=== PATIENT | female | born 1935 | race Native Hawaiian/Other Pacific Islander ===

== ENCOUNTER 2016-12-19 11:09 | Emergency (ER) | payer BC, MEDICARE ==
[2016-12-19 11:13] VITALS: BP 147/73; PULSE 70; TEMP 98.1; O2SAT 99
[2016-12-19 11:14] VITALS: BMI 19.9
[2016-12-19 11:30] VITALS: RESP 18
--- NOTE | 2016-12-19 11:48 | ED PDOC ---
HPI: Back Time Seen by Provider: 12/19/16 11:46 Chief Complaint (Nursing): Back Pain Chief Complaint (Provider): right sided flank pain History Per: Patient, Family (81 y/o female with right sided flank pain noted after lifting object 4-5 days ago. States she "heard a snap" at that time. Has had worsening pain recently/placing icy hot without relief. Patient's daughter is nurse and notes bruising along right side, concerned for zoster.) Past Medical History Reviewed: Historical Data, Nursing Documentation, Vital Signs Vital Signs: Last Vital Signs Temp 98.1 F 12/19/16 11:27 Pulse 70 12/19/16 11:27 Resp 18 12/19/16 11:27 BP 147/73 12/19/16 11:27 Pulse Ox 99 12/19/16 11:27 - Surgical History Surgical History: No Surg Hx - Family History Family History: States: No Known Family Hx - Home Medications Home Medications: Ambulatory Orders Medication Instructions Recorded Atorvastatin Calcium [Lipitor] 20 mg PO DAILY 03/10/14 Olmesartan Medoxomil [Benicar] 20 mg PO DAILY 03/10/14 Non-Formulary 1 ea INH DAILY #1 ea 12/19/16 oxyCODONE/Acetaminophen [Percocet 1 ea PO Q6 PRN #5 tab 12/19/16 5/325 mg Tab] - Allergies Allergies/Adverse Reactions: Allergies Allergy/AdvReac Type Severity Reaction Status Date / Time aspirin Allergy Intermediate SWELLING Uncoded 12/19/16 11:24 beef AdvReac Mild REDNESS Uncoded 12/19/16 11:24 coke cola AdvReac REDNESS Uncoded 12/19/16 11:24 Review of Systems ROS Statement: Except As Marked, All Systems Reviewed And Found Negative Cardiovascular: Positive for: Chest Pain Physical Exam - Reviewed Nursing Documentation Reviewed: Yes Vital Signs Reviewed: Yes - Physical Exam Appears: Positive for: Well, Non-toxic, No Acute Distress Head Exam: Positive for: ATRAUMATIC, NORMAL INSPECTION, NORMOCEPHALIC Skin: Positive for: Normal Color, Warm, DRY Eye Exam: Positive for: EOMI, Normal appearance, PERRL ENT: Positive for: Normal ENT Inspection Neck: Positive for: Normal, Painless ROM Cardiovascular/Chest: Positive for: Regular Rate, Rhythm. Negative for: Chest Non Tender (chest wall tender right latera along rib diogenes. (+) small region of bruising noted with yellowish hue. one small region of ecchymosis noted. No obvious vesicle noted.) Respiratory: Positive for: CNT, Normal Breath Sounds Gastrointestinal/Abdominal: Positive for: Normal Exam, Bowel Sounds, Soft Back: Positive for: Normal Inspection Extremity: Positive for: Normal ROM Neurologic/Psych: Positive for: Alert, Oriented - ECG O2 Sat by Pulse Oximetry: 99 - Progress ED Course And Treament: CXR: NO ACUTE RIB INJURY NOTED ON XRY; NO PNEUMOTHORAX SEEN BY DR. ROQUE. PROBABLE RIB INJURY/ UNLIKELY THAT IT IS SHINGLES Disposition - Clinical Impression Clinical Impression: Rib injury - Patient ED Disposition Is Patient to be Admitted: No - Disposition Disposition: Routine/Home Disposition Time: 12:23 Condition: FAIR Prescriptions: Non-Formulary 1 ea INH DAILY #1 ea oxyCODONE/Acetaminophen [Percocet 5/325 mg Tab] 1 ea PO Q6 PRN #5 tab PRN Reason: Pain, Severe (8-10) Instructions: Rib Fracture (ED)
--- NOTE | 2016-12-19 13:50 | RAD ---
PROCEDURE: Radiographs of the Chest and Right Ribs. HISTORY: evaluate for rib injury COMPARISON: None available. TECHNIQUE: Frontal radiograph of the chest and multiple oblique radiographs of the right ribs were obtained. FINDINGS: RIGHT RIBS: No fracture or focal lesion visualized. LUNGS: Clear. PLEURA: No pneumothorax or pleural fluid. CARDIOVASCULAR: Normal sized heart. No pulmonary vascular congestion. OTHER FINDINGS: Mild thoracic dextroscoliosis. IMPRESSION: No evidence of acute right rib fracture.
== END 2016-12-19 12:50 | disposition home or self-care (01) ==
LOC: H.ER 11:09
DX: S29.9XXA Unspecified injury of thorax, initial encounter (principal); X50.9XXA Other and unspecified overexertion or strenuous movements or postures, initial encounter; Y92.89 Other specified places as the place of occurrence of the external cause

== ENCOUNTER 2017-08-21 16:30 | Observation (INO) | payer BC, MEDICARE ==
[2017-08-21 16:30] VITALS: BMI 19.9
[2017-08-21] MEDS ORDERED: Iohexol 240 (50 ml) PO ONE (17:41)
[2017-08-21 17:43] LABS: BASO # 0.1 K/uL (0.0-0.2); BASO % 1.9 % (0.0-2.0); EOS # 0.1 K/uL (0.0-0.7); EOS % 1.1 % (0.0-4.0); HEMOGLOBIN 13.1 g/dL (12.0-16.0); LYMPH % 34.9 % (20.0-40.0); MEAN CELL VOLUME 88.4 fl (81.0-99.0); MEAN CORPUSCULAR HEMOGLOBIN 28.8 pg (27.0-31.0); MEAN CORPUSCULAR HGB CONC 32.6 g/dL (33.0-37.0); MEAN PLATELET VOLUME 7.6 fl (7.2-11.7); MONO # 0.6 K/uL (0.0-0.8); MONO % 10.3 % (0.0-10.0); NEUT # 2.9 K/uL (1.8-7.0); NEUT % 51.8 % (50.0-75.0); RBC 4.55 Mil/uL (3.80-5.20); RED CELL DISTRIBUTION WIDTH 12.9 % (11.5-14.5); WHITE BLOOD COUNT 5.6 K/uL (4.8-10.8)
[2017-08-21 18:00] LABS: CALCIUM 10.3 mg/dL (8.4-10.2); GFR AFRICAN-AMERICAN > 60; GFR NON-AFRICAN AMERICAN > 60; LIPASE 165 U/L (23-300)
--- NOTE | 2017-08-21 18:02 | ED PDOC ---
HPI: Abdomen Time Seen by Provider: 08/21/17 17:15 Chief Complaint (Nursing): Abdominal Pain Chief Complaint (Provider): abdominal pain History Per: Patient, Family (family member [facility] RN) History/Exam Limitations: no limitations Onset/Duration Of Symptoms: Days (14+) Outside of [place] travel?: No Current Symptoms Are (Timing): Intermittent Episodes Severity: Moderate Location Of Pain/Discomfort: RLQ Quality Of Discomfort: Sharp Associated Symptoms: denies: Fever, Chills, Nausea, Vomiting, Diarrhea, Loss Of Appetite, Constipation, Urinary Symptoms Exacerbating Factors: None Alleviating Factors: None Last Bowel Movement: Today Additional Complaint(s): 82yo female presents c/o ongoing RLQ pain for almost 2 weeks. Pain has been intermittent and sharp, today worse ("excruciating"). She denies fever, vomiting , diarrhea, loss of appetite or urinary symptoms. Denies syncope, weakness or back pain. Abnormal Vaginal Bleeding: No Past Medical History Reviewed: Historical Data, Nursing Documentation, Vital Signs Vital Signs: Last Vital Signs Temp 98.6 F 08/21/17 16:45 Pulse 87 08/21/17 16:45 Resp 16 08/21/17 16:45 BP 161/80 H 08/21/17 16:45 Pulse Ox 97 08/21/17 19:23 - Medical History PMH: Asthma, HTN, Hypercholesterolemia - Surgical History Other surgeries: hysterectomy - Family History Family History: States: Unknown Family Hx - Living Arrangements Living Arrangements: With Family - Social History Current smoker - smoking cessation education provided: No - Home Medications Home Medications: Ambulatory Orders Medication Instructions Recorded Atorvastatin Calcium [Lipitor] 20 mg PO DAILY 03/10/14 Olmesartan Medoxomil [Benicar] 20 mg PO DAILY 03/10/14 - Allergies Allergies/Adverse Reactions: Allergies Allergy/AdvReac Type Severity Reaction Status Date / Time aspirin Allergy Intermediate SWELLING Uncoded 08/21/17 16:49 beef AdvReac Mild REDNESS Uncoded 08/21/17 16:49 coke cola AdvReac REDNESS Uncoded 08/21/17 16:49 Review of Systems ROS Statement: Except As Marked, All Systems Reviewed And Found Negative Constitutional: Negative for: Fever, Chills Cardiovascular: Negative for: Chest Pain, Palpitations Gastrointestinal: Positive for: Abdominal Pain. Negative for: Nausea, Vomiting , Diarrhea, Melena, Hematochezia, Hematemesis Genitourinary Female: Negative for: Dysuria Musculoskeletal: Negative for: Neck Pain, Arm Pain, Hand Pain Skin: Negative for: Rash, Lesions, Jaundice Neurological: Negative for: Weakness, Numbness Psych: Negative for: Anxiety Physical Exam - Reviewed Nursing Documentation Reviewed: Yes Vital Signs Reviewed: Yes - Physical Exam Appears: Positive for: Well, Non-toxic, No Acute Distress Head Exam: Positive for: ATRAUMATIC, NORMAL INSPECTION, NORMOCEPHALIC Skin: Positive for: Normal Color, Warm, DRY Eye Exam: Positive for: EOMI, Normal appearance, PERRL ENT: Positive for: Normal ENT Inspection Neck: Positive for: Normal, Painless ROM Cardiovascular/Chest: Positive for: Regular Rate, Rhythm Respiratory: Positive for: CNT, Normal Breath Sounds Gastrointestinal/Abdominal: Positive for: Bowel Sounds, Soft, Tenderness (RLQ). Negative for: Guarding, Rebound, Asicites Back: Positive for: Normal Inspection Extremity: Positive for: Normal ROM Neurologic/Psych: Positive for: Alert, Oriented - Laboratory Results Result Diagrams: 08/21/17 17:30 08/21/17 17:30 - ECG O2 Sat by Pulse Oximetry: 97 Medical Decision Making Medical Decision Making: workup for abd pain initiated w bloodwork and CT abd pelv. Patient declined pain medicine. Disposition - Clinical Impression Clinical Impression: Abdominal pain - Patient ED Disposition Is Patient to be Admitted: Transfer of Care - Disposition Disposition: Transfer of Care Disposition Time: 19:23 Condition: STABLE Forms: [employer] (Serbian) Patient Signed Over To: Palomo Peters Handoff Comments: pending CT abd pelv and re-eval /dispo
[2017-08-21 18:11] LABS: ALB/GLOB RATIO 1.2 (1.0-2.1); ALBUMIN 4.6 g/dL (3.5-5.0); ALT/SGPT 28 U/L (9-52); AST/SGOT 44 U/L (14-36); BLOOD UREA NITROGEN 13 mg/dl (7-17)
[2017-08-21 19:18] LABS: URINE BILIRUBIN NEGATIVE (NEGATIVE); URINE BLOOD SMALL (NEGATIVE); URINE CLARITY CLEAR (Clear); URINE COLOR COLORLESS (YELLOW); URINE GLUCOSE (UA) NEG (Normal); URINE LEUKOCYTE ESTERASE NEG Leu/uL (Negative); URINE NITRATE NEGATIVE (NEGATIVE); URINE PROTEIN NEGATIVE (NEGATIVE); URINE UROBILINOGEN 0.2-1.0 mg/dL (0.2-1.0)
[2017-08-21] MEDS ORDERED: Iohexol 300 100 ML IJ ONE (19:56)
[2017-08-21] MEDS ORDERED: Sodium Chloride 0.9% 50 ML IV ONE (19:56)
--- NOTE | 2017-08-21 20:12 | ED PDOC ---
"- Laboratory Results Result Diagrams: 08/21/17 17:30 08/21/17 17:30 - ECG O2 Sat by Pulse Oximetry: 97 Medical Decision Making Medical Decision Making: Time: 1899 --Patient was endorsed to provider by Dr. Paul Velazco III. Pending CT results and re-evaluation. Addendum created by Preet Ordoñez MD on 08/21/2017 9:06 PM Eastern Time ([place] & [place]) THIS REPORT CONTAINS FINDINGS THAT MAY BE CRITICAL TO PATIENT CARE. The findings were verbally communicated via telephone conference with Dr. Garcia at 9:06 PM EST on 08/21/2017. The findings were acknowledged and understood. Initial Report created on 08/21/2017 8:51 PM Eastern Time ([place] & [place]) EXAM: CT Abdomen and Pelvis With Intravenous Contrast CLINICAL HISTORY: 82 years old, female; Pain; Abdominal pain; Flank; Right lower quadrant (rlq); Prior surgery; Surgery date: 6+ months; Surgery type: Hysterectomy; Additional info: Rlq pain x2 weeks TECHNIQUE: Axial computed tomography images of the abdomen and pelvis with intravenous contrast. All CT scans at this facility use one or more dose reduction techniques, viz.: automated exposure control; ma/kV adjustment per patient size (including targeted exams where dose is matched to indication; i.e. head); or iterative reconstruction technique. Coronal and sagittal reformatted images were created and reviewed. CONTRAST: 85 mL of Omnipaque administered intravenously. COMPARISON: CT ABD AND PELVIS 2012-04-06 11:45 FINDINGS: Lower thorax: Mild atelectasis/scarring. RIGHT middle lobe nodule, stable. Probable small hiatal hernia. ABDOMEN: Liver: Small exophytic lesion along inferior right lobe, stable. Gallbladder and bile ducts: Tiny calcified gallstone. Pancreas: No ductal dilation. No mass. Spleen: No splenomegaly. Adrenals: No mass. BRYAN LORD | Final Radiology Report CONFIDENTIALITY STATEMENT This report is intended only for use by the referring physician, and only in accordance with law. If you received this in error, call [phone]. Page 2 of 2 Kidneys and ureters: Probable LEFT renal cyst. Few too small to characterize lesions within kidneys. No hydronephrosis. Stomach and bowel: Mild mural thickening vs underdistention distal gastric antrum. Scattered diverticula within colon. No associated inflammatory stranding. No definite bowel wall thickening. No obstruction. Appendix: Borderline enlarged appendix, 6-7 mm in diameter. No associated inflammatory stranding. Contrast within proximal appendix. PELVIS: Bladder: Unremarkable. Reproductive: Hysterectomy. ABDOMEN and PELVIS: Intraperitoneal space: No significant fluid collection. No free air. Bones/joints: [id number] biconcave deformities of vertebral bodies, chronic. Degenerative changes of spine. Soft tissues: Unremarkable. Vasculature: Mild atherosclerotic disease. No aneurysm. Lymph nodes: No pathologically enlarged lymph nodes. IMPRESSION: 1. Diverticulosis without definite CT evidence of diverticulitis. 2. Borderline enlarged appendix. No inflammation. Clinical correlation is needed. 3. Incidental/non-acute findings are described above. Thank you for allowing us to participate in the care of your patient. Dictated and Authenticated by: Preet Ordoñez MD 08/21/2017 8:51 PM Eastern Time ([place] & [place]) [address] Almendarez who agrees to admission for appendectomy. Case discussed with Dr. Goodman. Patient to be cleared by Dr. Mann of cardiology pending EKG. Echo pending. Scribe Attestation: Documented by Radha Ennis, acting as a scribe for Palomo Peters MD. Provider Scribe Attestation: All medical record entries made by the Scribe were at my direction and personally dictated by me. I have reviewed the chart and agree that the record accurately reflects my personal performance of the history, physical exam, medical decision making, and the department course for this patient. I have also personally directed, reviewed, and agree with the discharge instructions and disposition. Disposition - Clinical Impression Clinical Impression: Appendicitis - POA Present On Arrival: None - Disposition Disposition: Admitted as In-Patient Disposition Time: 21:00 Condition: FAIR"
--- NOTE | 2017-08-21 20:51 | CT ---
EXAM: CT Abdomen and Pelvis With Intravenous Contrast CLINICAL HISTORY: 82 years old, female; Pain; Abdominal pain; Flank; Right lower quadrant (rlq); Prior surgery; Surgery date: 6+ months; Surgery type: Hysterectomy; Additional info: Rlq pain x2 weeks TECHNIQUE: Axial computed tomography images of the abdomen and pelvis with intravenous contrast. All CT scans at this facility use one or more dose reduction techniques, viz.: automated exposure control; ma/kV adjustment per patient size (including targeted exams where dose is matched to indication; i.e. head); or iterative reconstruction technique. Coronal and sagittal reformatted images were created and reviewed. CONTRAST: 85 mL of Omnipaque administered intravenously. COMPARISON: CT ABD AND PELVIS 2012-04-06 11:45 FINDINGS: Lower thorax: Mild atelectasis/scarring. RIGHT middle lobe nodule, stable. Probable small hiatal hernia. ABDOMEN: Liver: Small exophytic lesion along inferior right lobe, stable. Gallbladder and bile ducts: Tiny calcified gallstone. Pancreas: No ductal dilation. No mass. Spleen: No splenomegaly. Adrenals: No mass. Kidneys and ureters: Probable LEFT renal cyst. Few too small to characterize lesions within kidneys. No hydronephrosis. Stomach and bowel: Mild mural thickening vs underdistention distal gastric antrum. Scattered diverticula within colon. No associated inflammatory stranding. No definite bowel wall thickening. No obstruction. Appendix: Borderline enlarged appendix, 6-7 mm in diameter. No associated inflammatory stranding. Contrast within proximal appendix. PELVIS: Bladder: Unremarkable. Reproductive: Hysterectomy. ABDOMEN and PELVIS: Intraperitoneal space: No significant fluid collection. No free air. Bones/joints: [id number] biconcave deformities of vertebral bodies, chronic. Degenerative changes of spine. Soft tissues: Unremarkable. Vasculature: Mild atherosclerotic disease. No aneurysm. Lymph nodes: No pathologically enlarged lymph nodes. IMPRESSION: 1. Diverticulosis without definite CT evidence of diverticulitis. 2. Borderline enlarged appendix. No inflammation. Clinical correlation is needed. 3. Incidental/non-acute findings are described above.
[2017-08-21] MEDS ORDERED: Sodium Chloride 0.9% 1,000 ML IV STA (21:48)
[2017-08-21] MEDS ORDERED: Piperacillin/Tazobact 3.375 GM in Sodium Chloride 0.9% 100 ML IVPB STA (21:48)
[2017-08-21 22:25] LABS: PARTIAL THROMBOPLASTIN TIME 35.6 Seconds (25.6-37.1)
--- NOTE | 2017-08-22 00:46 | CP.PCM.CON ---
History of Present Illness - History of Present Illness History of Present Illness: General Surgery Dr. Almendarez 82 y/o F w/ PMHx of HTN and HLD presents to the ED c/o abd pain. Pt states pain has been intermittent x5day. Pain has not worsened in intensity, however has localized to the RLQ. Pt has never before had this pain. Nothing made the pain better but stephanie, lemon tea made the pain worse. Pt admits to constipation. Pt denies F/C, N/V, diarrhea. PMHx: see above Meds: reviewed in chart ALL: ASA - claire-orbital swelling PSHx: MARIA DOLORES SHx: denies tobacco, EtOH, drug use FHx: noncontributory Review of Systems - Review of Systems All systems: reviewed and no additional remarkable complaints except (see HPI) Past Patient History - Infectious Disease Hx of Infectious Diseases: None - Past Medical History & Family History Past Medical History?: Yes - Past Social History Smoking Status: Never Smoked - CARDIAC Hx Cardiac Disorders: Yes Hx Hypercholesterolemia: Yes Hx Hypertension: Yes - PULMONARY Hx Respiratory Disorders: Yes Hx Asthma: Yes Hx Pneumonia: Yes - NEUROLOGICAL Hx Neurological Disorder: No - HEENT Hx HEENT Problems: No - RENAL Hx Chronic Kidney Disease: No - ENDOCRINE/METABOLIC Hx Endocrine Disorders: No - HEMATOLOGICAL/ONCOLOGICAL Hx Blood Disorders: No - INTEGUMENTARY Hx Dermatological Problems: No - MUSCULOSKELETAL/RHEUMATOLOGICAL Hx Musculoskeletal Disorders: No Hx Falls: No - GASTROINTESTINAL Hx Gastrointestinal Disorders: No - GENITOURINARY/GYNECOLOGICAL Hx Genitourinary Disorders: No - PSYCHIATRIC Hx Psychophysiologic Disorder: No Hx Substance Use: No - SURGICAL HISTORY Hx Surgeries: Yes Hx Hysterectomy: Yes - ANESTHESIA Hx Anesthesia: Yes Hx Anesthesia Reactions: No Hx Malignant Hyperthermia: No Has any member of the family had a problem w/ anesthesia?: No Meds Allergies/Adverse Reactions: Allergies Allergy/AdvReac Type Severity Reaction Status Date / Time aspirin Allergy Intermediate SWELLING Uncoded 08/21/17 16:49 beef AdvReac Mild REDNESS Uncoded 08/21/17 16:49 coke cola AdvReac REDNESS Uncoded 08/21/17 16:49 - Medications Medications: Current Medications Atorvastatin Calcium (Lipitor) 20 mg PO DAILY LANDON Sodium Chloride (Sodium Chloride 0.9%) 1,000 mls @ 125 mls/hr IV .Q8H STA Stop: 08/22/17 05:47 Last Admin: 08/21/17 21:58 Dose: 125 mls/hr Piperacillin Sod/Tazobactam (Sod 3.375 gm/ Sodium Chloride) 100 mls @ 100 mls/ hr IVPB Q6 LANDON PRN Reason: Protocol Losartan Potassium (Cozaar) 50 mg PO DAILY LANDON Morphine Sulfate (Morphine) 1 mg IVP Q4 PRN PRN Reason: Pain, severe (8-10) Physical Exam - Constitutional Appears: Non-toxic, No Acute Distress - Head Exam Head Exam: NORMAL INSPECTION - Eye Exam Eye Exam: Normal appearance - ENT Exam ENT Exam: Mucous Membranes Moist - Respiratory Exam Respiratory Exam: NORMAL BREATHING PATTERN. absent: Accessory Muscle Use, Respiratory Distress - GI/Abdominal Exam GI & Abdominal Exam: Soft, Tenderness (TTP RLQ). absent: Distended, Firm, Guarding, Rebound, Rigid - Expanded GI/Abdominal Exam Expanded Expanded GI & Abdominal Exam: absent: Heel Tap Sign, Obturator Sign, Psoas Sign , Rovsing's Sign, McBurney's Point Tenderness - Extremities Exam Extremities exam: Positive for: normal inspection - Neurological Exam Neurological exam: Alert, Oriented x3 - Psychiatric Exam Psychiatric exam: Normal Affect, Normal Mood - Skin Skin Exam: Dry, Intact, Normal Color, Warm Results - Vital Signs Recent Vital Signs: Last Vital Signs Temp 98.1 F 08/22/17 00:25 Pulse 91 H 08/22/17 00:25 Resp 18 08/22/17 00:25 BP 134/66 08/22/17 00:25 Pulse Ox 96 08/22/17 00:25 - Labs Result Diagrams: 08/21/17 17:30 08/21/17 17:30 Labs: Laboratory Results - last 24 hr 08/21/17 08/21/17 08/21/17 17:30 17:30 19:00 WBC 5.6 RBC 4.55 Hgb 13.1 Hct 40.2 MCV 88.4 MCH 28.8 MCHC 32.6 L RDW 12.9 Plt Count 223 MPV 7.6 Neut % (Auto) 51.8 Lymph % (Auto) 34.9 [place] % (Auto) 10.3 H Eos % (Auto) 1.1 Baso % (Auto) 1.9 Neut # (Auto) 2.9 Lymph # (Auto) 2.0 [place] # (Auto) 0.6 Eos # (Auto) 0.1 Baso # (Auto) 0.1 PT INR APTT Sodium 143 Potassium 4.3 Chloride 103 Carbon Dioxide 28 Anion Gap 16 BUN 13 Creatinine 0.7 Est GFR ( Amer) > 60 Est GFR (Non-Af Amer) > 60 Random Glucose 91 Calcium 10.3 H Total Bilirubin 0.9 AST 44 H ALT 28 Alkaline Phosphatase 85 Total Protein 8.4 H Albumin 4.6 Globulin 3.8 Albumin/Globulin Ratio 1.2 Lipase 165 Urine Color Colorless Urine Clarity Clear Urine pH 6.0 Ur Specific Occidental 1.005 Urine Protein Negative Urine Glucose (UA) Neg Urine Ketones Negative Urine Blood Small Urine Nitrate Negative Urine Bilirubin Negative Urine Urobilinogen 0.2-1.0 Ur Leukocyte Esterase Neg Urine RBC (Auto) 3 Urine Microscopic WBC < 1 Blood Type Antibody Screen BBK History Checked 08/21/17 08/21/17 21:57 22:00 WBC RBC Hgb Hct MCV MCH MCHC RDW Plt Count MPV Neut % (Auto) Lymph % (Auto) [place] % (Auto) Eos % (Auto) Baso % (Auto) Neut # (Auto) Lymph # (Auto) [place] # (Auto) Eos # (Auto) Baso # (Auto) PT 11.0 INR 1.0 APTT 35.6 Sodium Potassium Chloride Carbon Dioxide Anion Gap BUN Creatinine Est GFR ( Amer) Est GFR (Non-Af Amer) Random Glucose Calcium Total Bilirubin AST ALT Alkaline Phosphatase Total Protein Albumin Globulin Albumin/Globulin Ratio Lipase Urine Color Urine Clarity Urine pH Ur Specific [place] Urine Protein Urine Glucose (UA) Urine Ketones Urine Blood Urine Nitrate Urine Bilirubin Urine Urobilinogen Ur Leukocyte Esterase Urine RBC (Auto) Urine Microscopic WBC Blood Type A POSITIVE Antibody Screen Negative BBK History Checked Patient has bt - Imaging and Cardiology CT scan - abdomen Status: Image reviewed by me, Report reviewed by me Assessment & Plan - Assessment and Plan (Free Text) Assessment: 82 y/o F w/ RLQ abd pain, possibly 2/2 appendicitis - NPO@[place] - IVF, IV Abx - pain management - serial abd exams - add-on tomorrow for possible lap appy Pt discussed w/ Dr. Erickson Foley
[2017-08-22] MEDS: Piperacillin/Tazobact 3.375 GM in Sodium Chloride 0.9% 100 ML IVPB SCH ×2 (05:03→09:55)
--- NOTE | 2017-08-22 08:01 | CP.PCM.PN ---
Subjective - Date & Time of Evaluation Date of Evaluation: 08/22/17 Time of Evaluation: 08:01 - Subjective Subjective: General Surgery: Dr Almendarez Pt S&E. Reports complete resolution of symptoms. Denies any pain at this time. Denies fevers, chills, nausea, vomiting. Requesting to eat and go home. Objective - Vital Signs/Intake and Output Vital Signs (last 24 hours): Temp Pulse Resp BP Pulse Ox 98.1 F 91 H 18 134/66 97 08/22/17 00:25 08/22/17 00:25 08/22/17 00:25 08/22/17 00:25 08/22/17 04:30 - Medications Medications: Current Medications Atorvastatin Calcium (Lipitor) 20 mg PO DAILY LANDON Piperacillin Sod/Tazobactam (Sod 3.375 gm/ Sodium Chloride) 100 mls @ 100 mls/ hr IVPB Q6 LANDON PRN Reason: Protocol Last Admin: 08/22/17 05:03 Dose: 100 mls/hr Losartan Potassium (Cozaar) 50 mg PO DAILY L[facility]ON Morphine Sulfate (Morphine) 1 mg IVP Q4 PRN PRN Reason: Pain, severe (8-10) - Labs Labs: 08/21/17 17:30 08/21/17 17:30 PT 11.0 Seconds (9.8-13.1) 08/21/17 21:57 INR 1.0 (0.9-1.2) 08/21/17 21:57 APTT 35.6 Seconds (25.6-37.1) 08/21/17 21:57 - Constitutional Appears: Non-toxic, No Acute Distress - ENT Exam ENT Exam: Mucous Membranes Moist - Respiratory Exam Respiratory Exam: absent: Accessory Muscle Use, Respiratory Distress - Cardiovascular Exam Cardiovascular Exam: REGULAR RHYTHM. absent: Tachycardia - GI/Abdominal Exam GI & Abdominal Exam: Soft. absent: Distended, Firm, Guarding, Rigid, Tenderness - Extremities Exam Extremities Exam: absent: Pedal Edema - Neurological Exam Neurological Exam: Alert, Awake, Oriented x3 - Psychiatric Exam Psychiatric exam: Normal Affect, Normal Mood - Skin Skin Exam: Normal Color, Warm Assessment and Plan - Assessment and Plan (Free Text) Assessment: 82F with undifferentiated abdominal pain Plan: clinically pt has improved no evidence of appendicitis on exam or CT will trial CLD, adv as tolerated clear for d/c if elia regular diet d/w Dr arielle mcnamara, PGY3
[2017-08-22 08:33] VITALS: RESP 20
--- NOTE | 2017-08-22 10:27 | RAD ---
HISTORY: abd pain COMPARISON: Chest radiograph dated 12/19/2016. TECHNIQUE: Chest PA and lateral FINDINGS: LUNGS: Stable chronic prominence of the bilateral interstitial markings. Left basilar atelectasis/ scarring. No focal consolidation. PLEURA: No significant pleural effusion identified. No pneumothorax apparent. CARDIOVASCULAR: Atherosclerotic aortic calcifications. Cardiomediastinal silhouette within normal limits. OSSEOUS STRUCTURES: Unchanged. VISUALIZED UPPER ABDOMEN: Retained oral contrast from recent CT scan seen in the colon. OTHER FINDINGS: None. IMPRESSION: Stable chronic prominence of the bilateral interstitial markings. No focal consolidation or pleural effusion.
--- NOTE | 2017-08-22 10:48 | CARD ---
APPROVED REPORT EXAM: Two-dimensional and M-mode echocardiogram with Doppler and color Doppler. Other Information Quality : GoodRhythm : NSR INDICATION Pre-Op 2D DIMENSIONS IVSd0.78 (0.7-1.1cm)LVDd3.49 (3.9-5.9cm) LVOT Diameter2.26 (1.8-2.4cm)PWd1.03 (0.7-1.1cm) IVSs1.49 (0.8-1.2cm)LVDs1.52 (2.5-4.0cm) FS (%) 56.4 %PWs1.38 (0.8-1.2cm) M-Mode DIMENSIONS Left Atrium (MM)3.61 (2.5-4.0cm)IVSd0.91 (0.7-1.1cm) Aortic Root2.65 (2.2-3.7cm)LVDd4.25 (4.0-5.6cm) Aortic Cusp Exc.1.58 (1.5-2.0cm)PWd0.93 (0.7-1.1cm) IVSs1.12 cmFS (%) 47 % LVDs2.27 (2.0-3.8cm)PWs1.46 cm Mitral Valve MV E Zoxesbjw97.8cm/sMV DECEL [id number] A Xuvytclh52.5cm/s MV VGE32mlZ/A ratio0.8MVA (PHT)3.08cm2 TDI Lateral E' Peak V7.74cm/sMedial E' Peak V5.79cm/sE/Lateral E'8.0 E/Medial E'10.7 Pulmonary Valve PV Peak Ormzmtbv19.0cm/s Tricuspid Valve TR Peak Nahplgpq803qt/sRAP [id number] Peak Gr.18mmHg [id number] LEFT VENTRICLE The left ventricle is normal size. The left ventricular function is normal. The left ventricular ejection fraction is within the normal range. The Ejection Fraction is 65-70%. There is normal LV segmental wall motion. Transmitral Doppler flow pattern is Grade I-abnormal relaxation pattern. RIGHT VENTRICLE The right ventricle is normal size. The right ventricular systolic function is normal. ATRIA The left atrium size is normal. The right atrium size is normal. AORTIC VALVE The aortic valve is normal in structure. No aortic regurgitation is present. There is no aortic valvular stenosis. MITRAL VALVE The mitral valve is normal in structure. There is no mitral valve stenosis. There is no mitral valve regurgitation noted. TRICUSPID VALVE The tricuspid valve is normal in structure. There is no tricuspid valve regurgitation noted. PULMONIC VALVE The pulmonary valve is normal in structure. There is no pulmonic valvular regurgitation. GREAT VESSELS The aortic root is normal in size. The IVC is normal in size and collapses >50% with inspiration. PERICARDIAL EFFUSION The pericardium appears normal. <Conclusion> The left ventricle is normal size. The left ventricular function is normal. The left ventricular ejection fraction is within the normal range. The Ejection Fraction is 65-70%.
--- NOTE | 2017-08-22 11:32 | CARD ---
APPROVED REPORT EKG Measurement Heart [id number] <Conclusion> Normal sinus rhythm Inferior infarct, age undetermined Abnormal ECG
--- NOTE | 2017-08-22 14:28 | CP.PCM.HP ---
History of Present Illness - History of Present Illness History of Present Illness: CC: Abdominal pain An 82 year old female with a pmhx of hypertention and hypercholesterolemia presents to the ED with complaints of RLQ pain which has been going on and off for 5-6 days. She states the pain is occasionally sharp, but was most intense when she drank stephanie with tea. Patient states pain got worse yesterday thus prompting her ED visit. She describes the pain as a 6-8/10, non radiating and localized in the RLQ. The patient denies loss of appetite, nausea, vomiting, fever, chills, constipation or diarrhea. Denies chest pain or SOB. The patient is pleasant, appears her stated age, alert and oriented x 3 Present on Admission - Present on Admission Any Indicators Present on Admission: No Review of Systems - Review of Systems All systems: reviewed and no additional remarkable complaints except (as stated) - Constitutional Constitutional: As Per HPI - Cardiovascular Cardiovascular: As Per HPI - Respiratory Respiratory: As Per HPI - Gastrointestinal Gastrointestinal: As Per HPI - Neurological Neurological: As Per HPI - Psychiatric Psychiatric: As Per HPI Past Patient History - Infectious Disease Hx of Infectious Diseases: None - Past Medical History & Family History Past Medical History?: Yes - Past Social History Smoking Status: Never Smoked - CARDIAC Hx Cardiac Disorders: Yes Hx Hypercholesterolemia: Yes Hx Hypertension: Yes - PULMONARY Hx Respiratory Disorders: Yes Hx Pneumonia: Yes - NEUROLOGICAL Hx Neurological Disorder: No - HEENT Hx HEENT Problems: No - RENAL Hx Chronic Kidney Disease: No - ENDOCRINE/METABOLIC Hx Endocrine Disorders: No - HEMATOLOGICAL/ONCOLOGICAL Hx Blood Disorders: No - INTEGUMENTARY Hx Dermatological Problems: No - MUSCULOSKELETAL/RHEUMATOLOGICAL Hx Musculoskeletal Disorders: No Hx Falls: No - GASTROINTESTINAL Hx Gastrointestinal Disorders: No - GENITOURINARY/GYNECOLOGICAL Hx Genitourinary Disorders: No - PSYCHIATRIC Hx Psychophysiologic Disorder: No Hx Substance Use: No - SURGICAL HISTORY Hx Surgeries: Yes Hx Hysterectomy: Yes - ANESTHESIA Hx Anesthesia: Yes Hx Anesthesia Reactions: No Hx Malignant Hyperthermia: No Has any member of the family had a problem w/ anesthesia?: No Meds Allergies/Adverse Reactions: Allergies Allergy/AdvReac Type Severity Reaction Status Date / Time aspirin Allergy Intermediate SWELLING Uncoded 08/21/17 16:49 beef AdvReac Mild REDNESS Uncoded 08/21/17 16:49 coke cola AdvReac REDNESS Uncoded 08/21/17 16:49 Physical Exam - Constitutional Appears: Well, No Acute Distress - Head Exam Head Exam: ATRAUMATIC, NORMOCEPHALIC - Eye Exam Eye Exam: Normal appearance, PERRL Pupil Exam: NORMAL ACCOMODATION - ENT Exam ENT Exam: Mucous Membranes Moist, Normal Exam - Neck Exam Neck exam: Positive for: Full Rom, Normal Inspection - Respiratory Exam Respiratory Exam: Clear to Auscultation Bilateral, NORMAL BREATHING PATTERN - Cardiovascular Exam Cardiovascular Exam: REGULAR RHYTHM, +S1, +S2 - GI/Abdominal Exam GI & Abdominal Exam: Normal Bowel Sounds, Soft (non tender) - Rectal Exam Rectal Exam: Deferred - Extremities Exam Extremities exam: Positive for: full ROM, normal capillary refill, normal inspection - Back Exam Back exam: FULL ROM, NORMAL INSPECTION - Neurological Exam Neurological exam: Alert, CN II-XII Intact, Normal Gait, Oriented x3 - Psychiatric Exam Psychiatric exam: Normal Affect, Normal Mood - Skin Skin Exam: Dry, Intact, Normal Color, Warm Results - Vital Signs Recent Vital Signs: Last Vital Signs Temp 97.0 F L 08/22/17 08:32 Pulse 70 08/22/17 08:47 Resp 20 08/22/17 08:32 BP 132/70 08/22/17 08:47 Pulse Ox 98 08/22/17 08:32 - Labs Result Diagrams: 08/21/17 17:30 08/21/17 17:30 Labs: Laboratory Results - last 24 hr 08/21/17 08/21/17 08/21/17 17:30 17:30 19:00 WBC 5.6 RBC 4.55 Hgb 13.1 Hct 40.2 MCV 88.4 MCH 28.8 MCHC 32.6 L RDW 12.9 Plt Count 223 MPV 7.6 Neut % (Auto) 51.8 Lymph % (Auto) 34.9 Millard % (Auto) 10.3 H Eos % (Auto) 1.1 Baso % (Auto) 1.9 Neut # (Auto) 2.9 Lymph # (Auto) 2.0 Millard # (Auto) 0.6 Eos # (Auto) 0.1 Baso # (Auto) 0.1 PT INR APTT Sodium 143 Potassium 4.3 Chloride 103 Carbon Dioxide 28 Anion Gap 16 BUN 13 Creatinine 0.7 Est GFR ( Amer) > 60 Est GFR (Non-Af Amer) > 60 Random Glucose 91 Calcium 10.3 H Total Bilirubin 0.9 AST 44 H ALT 28 Alkaline Phosphatase 85 Total Protein 8.4 H Albumin 4.6 Globulin 3.8 Albumin/Globulin Ratio 1.2 Lipase 165 Urine Color Colorless Urine Clarity Clear Urine pH 6.0 Ur Specific [place] 1.005 Urine Protein Negative Urine Glucose (UA) Neg Urine Ketones Negative Urine Blood Small Urine Nitrate Negative Urine Bilirubin Negative Urine Urobilinogen 0.2-1.0 Ur Leukocyte Esterase Neg Urine RBC (Auto) 3 Urine Microscopic WBC < 1 Blood Type Antibody Screen BBK History Checked 08/21/17 08/21/17 21:57 22:00 WBC RBC Hgb Hct MCV MCH MCHC RDW Plt Count MPV Neut % (Auto) Lymph % (Auto) Mill[place] % (Auto) Eos % (Auto) Baso % (Auto) Neut # (Auto) Lymph # (Auto) Millard # (Auto) Eos # (Auto) Baso # (Auto) PT 11.0 INR 1.0 APTT 35.6 Sodium Potassium Chloride Carbon Dioxide Anion Gap BUN Creatinine Est GFR ( Amer) Est GFR (Non-Af Amer) Random Glucose Calcium Total Bilirubin AST ALT Alkaline Phosphatase Total Protein Albumin Globulin Albumin/Globulin Ratio Lipase Urine Color Urine Clarity Urine pH Ur Specific [place] Urine Protein Urine Glucose (UA) Urine Ketones Urine Blood Urine Nitrate Urine Bilirubin Urine Urobilinogen Ur Leukocyte Esterase Urine RBC (Auto) Urine Microscopic WBC Blood Type A POSITIVE Antibody Screen Negative BBK History Checked Patient has bt - Imaging and Cardiology CT Abdomen/pelvis Additional comment: EXAM: CT Abdomen and Pelvis With Intravenous Contrast CLINICAL HISTORY: 82 years old, female; Pain; Abdominal pain; Flank; Right lower quadrant (rlq); Prior surgery; Surgery date: 6+ months; Surgery type: Hysterectomy; Additional info: Rlq pain x2 weeks TECHNIQUE: Axial computed tomography images of the abdomen and pelvis with intravenous contrast. All CT scans at this facility use one or more dose reduction techniques, viz.: automated exposure control; ma/kV adjustment per patient size (including targeted exams where dose is matched to indication; i.e. head); or iterative reconstruction technique. Coronal and sagittal reformatted images were created and reviewed. CONTRAST: 85 mL of Omnipaque administered intravenously. COMPARISON: CT ABD AND PELVIS 2012-04-06 11:45 FINDINGS: Lower thorax: Mild atelectasis/scarring. RIGHT middle lobe nodule, stable. Probable small hiatal hernia. ABDOMEN: Liver: Small exophytic lesion along inferior right lobe, stable. Gallbladder and bile ducts: Tiny calcified gallstone. Pancreas: No ductal dilation. No mass. Spleen: No splenomegaly. Adrenals: No mass. Kidneys and ureters: Probable LEFT renal cyst. Few too small to characterize lesions within kidneys. No hydronephrosis. Stomach and bowel: Mild mural thickening vs underdistention distal gastric antrum. Scattered diverticula within colon. No associated inflammatory stranding. No definite bowel wall thickening. No obstruction. Appendix: Borderline enlarged appendix, 6-7 mm in diameter. No associated inflammatory stranding. Contrast within proximal appendix. PELVIS: Bladder: Unremarkable. Reproductive: Hysterectomy. ABDOMEN and PELVIS: Intraperitoneal space: No significant fluid collection. No free air. Bones/joints: [id number] biconcave deformities of vertebral bodies, chronic. Degenerative changes of spine. Soft tissues: Unremarkable. Vasculature: Mild atherosclerotic disease. No aneurysm. Lymph nodes: No pathologically enlarged lymph nodes. IMPRESSION: 1. Diverticulosis without definite CT evidence of diverticulitis. 2. Borderline enlarged appendix. No inflammation. Clinical correlation is needed. 3. Incidental/non-acute findings are described above. Assessment & Plan (1) Abdominal pain Status: Acute Priority: High (2) Hypertension Status: Chronic Priority: Low (3) Hypercholesterolemia Status: Chronic Priority: Low - Assessment and Plan (Free Text) Assessment: 82 year old female with hx of HTN and hypercholesterolemia with RLQ abdominal pain Plan: Surgery consult appreciated Abdominal pain is improved No clinical findings of appendicitis Diverticulosis on CT scan Pt's diet to be advanced and if toleartes will d/c home Diet modification education
[2017-08-22 16:18] VITALS: BP 139/74; PULSE 84; TEMP 98.5; O2SAT 97
--- NOTE | 2017-08-22 23:21 | CP.PCM.DIS ---
Provider - Provider Date of Admission: 08/21/17 21:47 Attending physician: Vignesh Goodman MD Time Spent in preparation of Discharge (in minutes): 25 Diagnosis - Discharge Diagnosis (1) Abdominal pain Status: Acute Priority: High (2) Hypertension Status: Chronic Priority: Low (3) Hypercholesterolemia Status: Chronic Priority: Low Hospital Course - Lab Results Lab Results: Most Recent Lab Values WBC 5.6 K/uL (4.8-10.8) 08/21/17 17:30 RBC 4.55 Mil/uL (3.80-5.20) 08/21/17 17:30 Hgb 13.1 g/dL (12.0-16.0) 08/21/17 17:30 Hct 40.2 % (34.0-47.0) 08/21/17 17:30 MCV 88.4 fl (81.0-99.0) 08/21/17 17:30 MCH 28.8 pg (27.0-31.0) 08/21/17 17:30 MCHC 32.6 g/dL (33.0-37.0) L 08/21/17 17:30 RDW 12.9 % (11.5-14.5) 08/21/17 17:30 Plt Count 223 K/uL (130-400) 08/21/17 17:30 MPV 7.6 fl (7.2-11.7) 08/21/17 17:30 Neut % (Auto) 51.8 % (50.0-75.0) 08/21/17 17:30 Lymph % (Auto) 34.9 % (20.0-40.0) 08/21/17 17:30 [place] % (Auto) 10.3 % (0.0-10.0) H 08/21/17 17:30 Eos % (Auto) 1.1 % (0.0-4.0) 08/21/17 17:30 Baso % (Auto) 1.9 % (0.0-2.0) 08/21/17 17:30 Neut # (Auto) 2.9 K/uL (1.8-7.0) 08/21/17 17:30 Lymph # (Auto) 2.0 K/uL (1.0-4.3) 08/21/17 17:30 [place] # (Auto) 0.6 K/uL (0.0-0.8) 08/21/17 17:30 Eos # (Auto) 0.1 K/uL (0.0-0.7) 08/21/17 17:30 Baso # (Auto) 0.1 K/uL (0.0-0.2) 08/21/17 17:30 PT 11.0 Seconds (9.8-13.1) 08/21/17 21:57 INR 1.0 (0.9-1.2) 08/21/17 21:57 APTT 35.6 Seconds (25.6-37.1) 08/21/17 21:57 Sodium 143 mmol/l (132-148) 08/21/17 17:30 Potassium 4.3 MMOL/L (3.6-5.0) 08/21/17 17:30 Chloride 103 mmol/L (98-107) 08/21/17 17:30 Carbon Dioxide 28 mmol/L (22-30) 08/21/17 17:30 Anion Gap 16 (10-20) 08/21/17 17:30 BUN 13 mg/dl (7-17) 08/21/17 17:30 Creatinine 0.7 mg/dl (0.7-1.2) 08/21/17 17:30 Est GFR ( Amer) > 60 08/21/17 17:30 Est GFR (Non-Af Amer) > 60 08/21/17 17:30 Random Glucose 91 mg/dL (65-105) 08/21/17 17:30 Calcium 10.3 mg/dL (8.4-10.2) H 08/21/17 17:30 Total Bilirubin 0.9 mg/dl (0.2-1.3) 08/21/17 17:30 AST 44 U/L (14-36) H 08/21/17 17:30 ALT 28 U/L (9-52) 08/21/17 17:30 Alkaline Phosphatase 85 U/L (38-126) 08/21/17 17:30 Total Protein 8.4 G/DL (6.3-8.2) H 08/21/17 17:30 Albumin 4.6 g/dL (3.5-5.0) 08/21/17 17:30 Globulin 3.8 gm/dL (2.2-3.9) 08/21/17 17:30 Albumin/Globulin Ratio 1.2 (1.0-2.1) 08/21/17 17:30 Lipase 165 U/L (23-300) 08/21/17 17:30 Urine Color Colorless (YELLOW) 08/21/17 19:00 Urine Clarity Clear (Clear) 08/21/17 19:00 Urine pH 6.0 (5.0-8.0) 08/21/17 19:00 Ur Specific [place] 1.005 (1.003-1.030) 08/21/17 19:00 Urine Protein Negative mg/dL (NEGATIVE) 08/21/17 19:00 Urine Glucose (UA) Neg mg/dL (Normal) 08/21/17 19: Urine Ketones Negative mg/dL (NEGATIVE) 08/21/17 19:00 Urine Blood Small (NEGATIVE) 08/21/17 19:00 Urine Nitrate Negative (NEGATIVE) 08/21/17 19:00 Urine Bilirubin Negative (NEGATIVE) 08/21/17 19:00 Urine Urobilinogen 0.2-1.0 mg/dL (0.2-1.0) 08/21/17 19:00 Ur Leukocyte Esterase Neg [place]/uL (Negative) 08/21/17 19:00 Urine RBC (Auto) 3 /hpf (0-3) 08/21/17 19:00 Urine Microscopic WBC < 1 /hpf (0-5) 08/21/17 19:00 Blood Type A POSITIVE 08/21/17 22:00 Antibody Screen Negative 08/21/17 22:00 BBK History Checked Patient has bt 08/21/17 22:00 - Hospital Course Hospital Course: The patient is an 82 year old female with hx of HTN and high cholesterol who presented to the ED with c/o of RLQ abdominal pain for about 5-6 days. The patient was started on IV abx empirically for possible appendicitis. The patient had a CT of A/P which showed a mildly distended appendix and diverticulosis without CT evidence of diverticulitis. The patient was seen by surgery and was started on a diet. The patient reported resolution of abdominal pain and tolerated diet. There was no clinical finding of appendicitis. The patient was discharged home with instructions on diet modification and resumption of home medications. Discharge Exam - Head Exam Head Exam: ATRAUMATIC, NORMOCEPHALIC - Respiratory Exam Respiratory Exam: Clear to PA & Lateral, NORMAL BREATHING PATTERN - Cardiovascular Exam Cardiovascular Exam: REGULAR RHYTHM, +S1, +S2 - GI/Abdominal Exam GI & Abdominal Exam: Normal Bowel Sounds, Soft (non tender) - Neurological Exam Neurological exam: Alert, Normal Gait, Oriented x3 - Psychiatric Exam Psychiatric exam: Normal Affect, Normal Mood - Skin Skin Exam: Dry, Normal Color, Warm Discharge Plan - Follow Up Plan Condition: STABLE Disposition: HOME/ ROUTINE Instructions: Diverticulosis (DC), Diverticulitis Diet (DC) Additional Instructions: follow up with primary MD 7-10 days Referrals: Vignesh Goodman MD [Staff Provider] - Nato Almendarez MD [Staff Provider] -
== END 2017-08-22 17:45 | disposition home or self-care (01) ==
LOC: H.ER 16:30 → INTOOBSV 21:47 → H.ERHOLD 21:47 → H.MEDSURG1 08-22
PROVIDERS: ADMIT Internal Medicine; ATTEND Internal Medicine
DX: R10.31 Right lower quadrant pain (principal); K59.00 Constipation, unspecified; K57.90 Diverticulosis of intestine, part unspecified, without perforation or abscess without bleeding; E78.00 Pure hypercholesterolemia, unspecified; E78.5 Hyperlipidemia, unspecified; I10 Essential (primary) hypertension; J45.909 Unspecified asthma, uncomplicated; Z87.01 Personal history of pneumonia (recurrent); Z88.6 Allergy status to analgesic agent
CPT/HCPCS: 71046; 74177; 80053; 81003; 83690; 85025; 85610; 85730; 86850; 86900; 93005; 93306; 96365; 96366; 99284; G0378; J2543; J7040; Q9966; Q9967